=== PATIENT | female | born 1930 | race Caucasian/White ===

== ENCOUNTER → 2017-05-01 | Outpatient (CLI) | payer OTHER ==
[~2017-05-01] MED LIST: COR200 PO; CRESTOR; CRESTOR10 M1 PO; K10 PO; LEVOFLOXACIN500 M1 PO; LOP50 PO; METOPROLOL TART25 M1 PO; NOR10 PO; POTASSIUM CHLO20 ME1 PO; SYN75 PO; SYNTHROID0.075 MG PO; VALSARTAN AND H1 TA3 PO; VALSARTAN/HCTZ; VITAMIN D31000 I2 PO; XARELTO; XARELTO10 M1 PO
== END | disposition home or self-care (01) ==
LOC: RD 09:36
DX: Z00.00 Encounter for general adult medical examination without abnormal findings (principal)

== ENCOUNTER 2019-04-05 12:21 | Inpatient (IN) | payer OTHER ==
[~2019-04-05] VITALS: Ht 162.6 cm; Wt 97.1 kg
[2019-04-05 12:28] VITALS: Ht 162.6 cm; Wt 97.1 kg
--- NOTE | 2019-04-05 12:40 | NUR ---
BROUGHT IN BY AMBULANCE AWAKE ALERT ORIENTED,C/O SOB STARTED 2 DAYS AGO,[facility] PT WAS NOT IN DISTRESS AND MINIMAL WHEEZING ,WAS GIVEN HHN TREATMENT ,FEELS BETTER
[2019-04-05 14:12] LABS: BASOPHIL % 0.9 % (0-2); PLATELET COUNT 224 x10^3mcL (130-400); RED CELL DISTRIBUTION WIDTH 16.3 % (11.5-14.5)
[2019-04-05 14:13] LABS: microscopic required? YES; urine erythrocyte 2+ (NEGATIVE)
--- NOTE | 2019-04-05 14:32 | NUR ---
PT RESTING COMFORTABLY, FAMILY AT BEDSIDE PT ON FULL CM. WILL CONTINUE TO MONITOR
[2019-04-05 14:47] LABS: CALCIUM 9.4 mg/dL (8.5-10.1); CARBON DIOXIDE 27.2 mmol/L (21-32); CHLORIDE SERUM 101 mmol/L (98-107); CREATININE SERUM 1.2 mg/dL (0.6-1.0); GLUCOSE SERUM 114 mg/dL (74-106); POTASSIUM SERUM 4.2 mmol/L (3.5-5.1); SODIUM SERUM 139 mmol/L (136-145)
[2019-04-05 14:52] LABS: ALKALINE PHOSPHATASE 183 U/L (46-116); ALT/SGPT 30 U/L (14-59); AST/SGOT 30 U/L (15-37); BILIRUBIN TOTAL 2.6 mg/dL (0.20-1.00); TOTAL PROTEIN, SERUM 8.1 g/dL (6.4-8.2)
[2019-04-05 14:53] LABS: ALBUMIN 3.2 g/dL (3.4-5.0)
--- NOTE | 2019-04-05 15:19 | NUR ---
PT MEDICATED PER MD ORDERS SEE EMAR. FAMILY AT BEDSIDE PT REMAINS ON FULL CM WILL MONITOR.
[2019-04-05] MEDS ORDERED: CARDIZEM CD180 MG (15:23)
--- NOTE | 2019-04-05 16:20 | NUR ---
PT ASSISTED TO BEDPAN. THIS IS PT SECOND TIME VOIDING. CATHIE CARE DONE, PT IN POSITION OF COMFORT WILL MONITOR
--- NOTE | 2019-04-05 16:35 | NUR ---
PT TO CT AT THIS TIME
--- NOTE | 2019-04-05 16:50 | NUR ---
REPORT GIVEN TO CARLOS BHATTI IN TELE FLOOR. MATTEO BHATTI WILL BE PRIMARY RN IN TELE FLOOR
--- NOTE | 2019-04-05 16:59 | NUR ---
PT TAKEN TO "STAT CT ANGIO" BY [employer] PRESSURE WASHER.
[2019-04-05 17:15] LABS: FREE T4 1.92 ng/dL (0.76-1.46); FREE THYROXINE INDEX 5.2 ug/dL (1.4-4.5); T4(THYROXINE) 13.6 ug/dL (4.7-13.3)
--- NOTE | 2019-04-05 17:19 | NUR ---
PT TO TELE FLOOR VIA [employer] ON PORTABLE CM NO DISTRESS TAKEN BY DEBBY BHATTI AND DESIREE MENCHACA. OLGA BHATTI RESUMING CARE OF PT IN TELE FLOOR
[2019-04-05 17:27] LABS: MAGNESIUM 1.9 mg/dL (1.8-2.4); PHOSPHOROUS 3.1 mg/dL (2.5-4.9)
[2019-04-05 17:52] VITALS: BP 157/79
--- NOTE | 2019-04-05 18:05 | NUR ---
RECEIVED PT FROM ER, PT ADMIT FOR CHF. PT IS A/O X4, VERBAL RESPONSIVE. LUNG SOUND CLEAR BILATERAL, NO COUGH, NO SOB. PT IS ON TELE 3, A.FIB. DENY ANY CHEST PAIN OR DISCOMFORT. BOWEL SOUND PRESENT ALL 4 QUADRANTS, NO DISTENTION, NO TNEDER. PEDAL PULSE PRESENT BOTH FEET, +1 EDEMA BLE. IV AT LEFT AC, NO LEAKING, NO INFILTRAITON.A LL ADLS ASSIST,ALL NEED MET, CALL LIGHT IN REACH, WILL CONTINUE TO MONITOR.
[2019-04-05 18:08] LABS: T3 TOTAL 0.7 ng/mL
--- NOTE | 2019-04-05 19:20 | NUR ---
AWAKE AND ALERT, ORIENTED TO NAME, PLACE, TIME AND SITUATION. SPEECH CLEAR AND APPROPRIATE. BREATHING EVEN AND UNLABORED ON 2LPM OF O2 VIA NC, BUT STATED HAS SHORTNESS OF BREATH WHEN SHE GETS UP TO GO TO RESTROOM, NEEDS ASSISTANCE TO USE RESTROOM. AFIB ON TELE, WITH PACEMAKER, HR 88-90/MIN, NO PACING NOTED AT THIS TIME. DENIES HAVING CHEST PAIN. SALINE LOCK TO LEFT AC.
--- NOTE | 2019-04-05 19:45 | NUR ---
NOTED ORDER TO INTERROGATE PACEMAKER. OBTAIN PACEMAKER DETAILS FROM PATIENT, OFFICE MACHINE SERVICER APPRENTICE IS [employer]. CALLED [employer] ABLE TO SPEAK WITH FATIMAH. SHE STATED SOMEBODY WILL BE CALLING BACK.
--- NOTE | 2019-04-05 19:50 | NUR ---
NOTED LACTIC 3.7. PAGED DR. LOPEZ
--- NOTE | 2019-04-05 20:13 | NUR ---
NOTED NEW ORDER
[2019-04-05 21:17] VITALS: BP 140/67
--- NOTE | 2019-04-05 22:03 | NUR ---
ASSISTED TO AMBULATE TO RESTROOM. VOIDED. ASSISTED BACK TO BED. SALINE LOCK TO LEFT AC FLUSHED WELL. EARLIER EXPLAINED TO PT PURPOSE OF ORDERED ANTIBIOTICS AND POSSIBLE SIDE EFFECT. STARTED ORDERED CLEOCIN IVPB.
[2019-04-05 23:10] VITALS: BP 140/67
--- NOTE | 2019-04-05 23:35 | NUR ---
EYES CLOSED, BREATHING EVEN AND UNLABORED ON 2LPM OF O2 VIA NC. CALL LIGHT WITHIN EASY REACH. BED ALARM ON. HOB KEPT ELEVATED 30 DEG.
--- NOTE | 2019-04-06 00:18 | NUR ---
ASSISTED TO RESTROOM BY BOOM DHALIWAL. VOIDED. STATED HAS NOT BEEN ABLE TO SLEEP. ASKING FOR SLEEPING PILL. PAGED DR. LOPEZ
--- NOTE | 2019-04-06 00:19 | NUR ---
DR. LOPEZ CALLED BACK, INFORMED PT UNABLE TO SLEEP, ASKING FOR SLEEPING PILL
--- NOTE | 2019-04-06 03:47 | NUR ---
EYES CLOSED, BREATHING EVEN AND UNLABORED. CALL LIGHT WITHIN EASY REACH. BED ALARM ON.
[2019-04-06 05:25] VITALS: BP 145/74
--- NOTE | 2019-04-06 06:06 | NUR ---
ASSISTED RESTROOM, VOIDED, ASSISTED BACK TO BED. PROVIDED WITH NEW NON-SKID SOCKS. STATED SLEPT WELL. BREATHING EVEN AND UNLABORED ON 2LPM OF O2 VIA NC. SALINE LOCK TO LEFT AC FLUSHED WELL, STARTED DUE CLEOCIN IVPB. AFIB HR 103/MIN.
--- NOTE | 2019-04-06 07:05 | NUR ---
EYES CLOSED, BREATHING EVEN AND UNLABORED. IN NO ACUTE DISTRESS. ENDORSED TO NURSE SARY
--- NOTE | 2019-04-06 07:15 | NUR ---
AAO X4.DENIES ANY PAIN/DISCOMFORT.LUNG SOUND CLEAR/DIM.ON AFIB ON THE MONITOR.HR=97.IV SALINE LOCKED.BLE WITH TRACE EDEMA.CALL LIGHT WITHIN REACH.INSTRUCTED TO CALL FOR ANY PAIN/DISCOMFORT.WILL CONTINUE TO MONITOR PT.
[2019-04-06 08:22] VITALS: BP 120/66
[2019-04-06 08:25] VITALS: BP 163/74
[2019-04-06 08:30] LABS: BASOPHIL % 0.4 % (0-2); PLATELET COUNT 185 x10^3mcL (130-400)
[2019-04-06 08:38] LABS: RED CELL DISTRIBUTION WIDTH 16.2 % (11.5-14.5)
[2019-04-06 12:30] LABS: ALKALINE PHOSPHATASE 147 U/L (46-116); ALT/SGPT 22 U/L (14-59); AST/SGOT 25 U/L (15-37); BILIRUBIN TOTAL 2.18 mg/dL (0.20-1.00); CALCIUM 8.5 mg/dL (8.5-10.1); CARBON DIOXIDE 32.4 mmol/L (21-32); CHLORIDE SERUM 102 mmol/L (98-107); CREATININE SERUM 1.1 mg/dL (0.6-1.0); GLUCOSE SERUM 76 mg/dL (74-106); MAGNESIUM 1.8 mg/dL (1.8-2.4); PHOSPHOROUS 3.5 mg/dL (2.5-4.9); POTASSIUM SERUM 3.8 mmol/L (3.5-5.1); SODIUM SERUM 139 mmol/L (136-145); TOTAL PROTEIN, SERUM 6.3 g/dL (6.4-8.2)
[2019-04-06 12:32] LABS: ALBUMIN 2.8 g/dL (3.4-5.0)
[2019-04-06 12:41] VITALS: BP 129/73
--- NOTE | 2019-04-06 13:31 | NUR ---
Echocardiogam completed.
--- NOTE | 2019-04-06 14:47 | NUR ---
TOOK PICTURES ON PT'S BUTTOCKS.NOTED CONTACT DEMATITIS RELATED TO INCONTINENCE.CLEANED ARE AND APPLIED Z-GUARD.INSTRUCTED PT TO TURN FREQUENTLY.
--- NOTE | 2019-04-06 15:33 | NUR ---
IV LEAKING.REINSERTED 22 G ON L HAND.
[2019-04-06 16:45] VITALS: BP 125/69
--- NOTE | 2019-04-06 18:51 | NUR ---
NO SIGNIFICANT CHANGE NOTED.WILL ENDORSE TO NEXT SHIFT.
--- NOTE | 2019-04-06 19:38 | NUR ---
RECEIVED PT FROM DAY SHIFT RN. PT AAOX4 DENIES LANE/DIZZINESS. PT BREATHING EVEN AND UNLABORED ON NC 2L/MIN, NO SOB NOTED. TELE #3 PACED, AFIB WITH BBB. HR 90. PT DENIES CHEST PAIN/PRESSURE. IV LH. BLE EDEMA NOTED, PALPABLE PULSES. NO SIGNS OF ACUTE DISTRESS NOTED. CALL BUTTON WITHIN REACH. SAFETY PRECAUTIONS IN PLACE. WILL CONTINUE TO MONITOR.
[2019-04-06 21:05] VITALS: BP 125/73
--- NOTE | 2019-04-07 02:00 | NUR ---
PT RESTING. NO ACUTE DISTRESS NOTED. IV PATENT, INFUSING WELL. CALL BUTTON WITHIN REACH. SAFETY PRECAUTIONS IN PLACE. WILL CONTINUE TO MONITOR.
[2019-04-07 05:47] VITALS: BP 127/78
--- NOTE | 2019-04-07 06:31 | NUR ---
PT SLEPT MOST OF THE NIGHT WITH NO SIGNS OF DISTRESS NOTED. IV PATENT, SL. PT AMBULATORY WITH BRP. PT MEDICATED PER EMAR. NO SIGNS OF ACUTE DISTRESS. CALL BUTTON WITHIN REACH. SAFETY PRECAUTIONS IN PLACE. WILL CONTINUE TO MONITOR AND ENDORSE CARE TO DAY SHIFT RN.
--- NOTE | 2019-04-07 07:35 | NUR ---
RECEIVED HAND OFF REPORT FROM NIGHT NURSE. PATIENT RESTING AT THIS TIME. EYES CLOSED. BREATHING REGULAR AND UNLABORED. APPARENTLY ASLEEP. TELE 3 PRESENT ON CHEST, SHOWING AFIB AT 110. PACEMAKER PRESENT TO UPPER LEFT CHEST. CALL LIGHT ASIA DICKSON, WILL CONTINUE TO MONITOR
--- NOTE | 2019-04-07 07:48 | NUR ---
PT RESTING. NO ACUTE DISTRESS NOTED. CALL BUTTON WITHIN REACH. SAFETY PRECAUTIONS IN PLACE. ENDORSED CARE TO DAY SHIFT RN, ALL QUESTIONS ADDRESSED.
[2019-04-07 09:12] VITALS: BP 101/51
--- NOTE | 2019-04-07 10:02 | NUR ---
DR CAMERON AND DR ALMODOVAR ROUNDED ON PATIENT. CURRETLY ON 2LT NC OQYGEN, ORDER FOR HOME O2 EVALUATION, WILL ATTEMPT TO WEEN OFF OXYGEN. CHANGE TO DILTIAZEM FOR 160 TO 180MG.
--- NOTE | 2019-04-07 10:31 | NUR ---
ADMINSTERED MEDICATIONS PER JUN. PATIENT BLOOD PRESSURE 99/47 HELD BLOOD PRESSURE MEDICATIONS DUE TO PARAMETERES TO HOLD IF SBP<120. WILL UPDATE DR ALMODOVAR
--- NOTE | 2019-04-07 11:30 | NUR ---
HOME O2 EVALUATION COMPLETED FOR PATIENT. PT DOES NOT QUALIFY FOR HOME O2. ROOM AIR SPO2 89% RESTING, 99% AMBULATING. SPO2 99% AMBULATING ON O2 WELL.
--- NOTE | 2019-04-07 12:27 | NUR ---
PATIENT RESTING IN BED AT THIS TIME ON ROOM AIR. NO SOB, O2 SAT 92% HOME O2 EVAL DEEMED PATIENT DOES NOT QUALIFY FOR HOME O2. WILL UPDATE DOCTOR.
--- NOTE | 2019-04-07 13:45 | NUR ---
DR SAHNI ROUNDED ON PATIENT. UPDATED ON PATIENT PLAN OF CARE. PATIETN DAUGHTER IN ROOM. AWAITING THERMODYNAMICS TEACHER CONSULTATION FOR UPDATE ON MEDICATONS AND TREATMENT PLANS BEFORE DISCHARGE
[2019-04-07 14:04] VITALS: BP 97/49
[2019-04-07 16:52] VITALS: BP 122/61
--- NOTE | 2019-04-07 17:56 | NUR ---
ADMINISTERED MEDICATIONS PER MAR. STARTED PATIENT ON NEW MEDICATION, DIGOXIN PER DR NORRIS. EDUCATED PATIENT ABOUT MEDICATION, USES, INDICATIONS AND SIDE EFFECTS, PROVIDED EDUCATION MATERIAL ABOUT MEDICATION. CHECKED APICAL PULSE, 114. WILL CONTINUE TO MONITOR
--- NOTE | 2019-04-07 19:35 | NUR ---
Pt. received from day shift, currently resting in bed awake and alert. Pt. is able to make needs known, able to follow commands, and has no c/o of h/a at this time. Pt. at this time has no c/o SOB, chest pain, pain, s/o discomfort or distress. Pt. is ambulatory w/ assistance to the bathroom, redness noted, incontinent dermatitis noted near her buttocks area, cream was applied by day shift and as per day shift, pt. was educated. Otherwise, pt. stable, pt. safety in check w/ call light placed within reach, pt. educated on when and how to use call light system, bed set at lowest position, will continue to monitor pt.
[2019-04-07 21:05] VITALS: BP 119/85
--- NOTE | 2019-04-08 | NUR ---
Pt. asleep for most of the shift, no c/o of c/p, n,v, h/a, or s/o distress. Pt. easily arousable using verbal stimuli throughout shift, will continue to monitor pt at this time.
--- NOTE | 2019-04-08 05:42 | NUR ---
Pt. asleep for most of the night, easily arousable using verbal stimuli. Pt. had no c/o c/p throughout the night. Pt. did c/o of weird pain in left hip, but blames it on bed. Educated pt. to reposition self in bed every hour or two, and will follow up in the AM with MD. Otherwise, pt. was d/c from IV s/p ab(x) t(x), will continue to monitor pt. until end of shift and endorse to oncoming RN.
[2019-04-08 06:15] VITALS: BP 133/58
[2019-04-08 06:35] LABS: PLATELET COUNT 216 x10^3mcL (130-400)
[2019-04-08 06:48] LABS: CALCIUM 8.8 mg/dL (8.5-10.1); CARBON DIOXIDE 35.2 mmol/L (21-32); CHLORIDE SERUM 97 mmol/L (98-107); CREATININE SERUM 1.6 mg/dL (0.6-1.0); GLUCOSE SERUM 82 mg/dL (74-106); MAGNESIUM 1.8 mg/dL (1.8-2.4); PHOSPHOROUS 4.2 mg/dL (2.5-4.9); POTASSIUM SERUM 3.6 mmol/L (3.5-5.1); SODIUM SERUM 138 mmol/L (136-145)
--- NOTE | 2019-04-08 07:20 | NUR ---
RECEIVED PT SITTING UP IN BED. NO ACUTE DISTRESS. AAOX4. RESP EVEN AND UNLABORED ON RA. PT REPORTS HAVING DRY HEAVES AFTER TAKING MEDICINE EARLIER BUT FEELS BETTER NOW. EMESIS BAG WITH PT. IV TO RFA, NO REDNESS OR SWELLING NOTED. HOB ELEVATED. GEN WEAKNESS. FALL PRECAUTIONS. BED IN LOW POSITION, CALL LIGHT WITHIN REACH. WILL CONTINUE TO MONITOR.
[2019-04-08 08:33] VITALS: BP 139/66
--- NOTE | 2019-04-08 11:31 | NUR ---
PT RESTING IN BED WATCHING TV. NO ACUTE DISTRESS. HOB ELEVATED. AAOX4. RESP EVEN AND UNLABORED ON RA. IV TO RFA, NO REDNESS OR SWELLING NOTED. FALL PRECAUTIONS. CALL LIGHT WITHIN REACH. WILL CONTINUE TO MONITOR.
[2019-04-08 13:13] VITALS: BP 111/56
[2019-04-08] MEDS ORDERED: PEP20 PO (13:42)
[2019-04-08] MEDS ORDERED: LOP50 PO (13:42)
[2019-04-08] MEDS ORDERED: D25 PO (13:43)
[2019-04-08] MEDS ORDERED: XARELTO15 M1 PO (13:43)
[2019-04-08] MEDS ORDERED: KLOR-CON M2020 MEQ PO (13:44)
[2019-04-08] MEDS ORDERED: CARCD180 PO (13:44)
[2019-04-08] MEDS ORDERED: SYN75 PO (13:45)
[2019-04-08] MEDS ORDERED: LEVOFLOXACIN500 M1 PO (13:54)
[2019-04-08] MEDS ORDERED: DIT5 PO (13:56)
--- NOTE | 2019-04-08 14:00 | NUR ---
1. Recommend continuing cardiac (1L FR/24 hrs) diet at this time.
--- NOTE | 2019-04-08 14:00 | NUR ---
Initial Nutrition Assessment: 243T/A OFE DIAZ IA HR Dx: CHF PMHx: HTN, Atrial Fibrillation, s/p pacemaker, Hyperlipidemia, Hypothyroidism PSHx: Cholecystectomy (2002), Cataract Removal (2008-Rt, 2013-Lt), Hernia Repair (1996), Pacemaker insertion- 2012, Hysterectomy-1973, Tonsillectomy/adenoidectomy-1942 Labs: BUN 26H, CREAT 1.6H, ALB 2.8L Meds: Colace, Lopressor, norco, pepcid, synthroid Diet: cardiac (1L FR/24 hrs) PO intake since admission: (04/06) all meals 90% Ht: 162.56 cm (64") Wt: 97 kg (213#) BMI: 36.7 kg/m2 Bed scale: 97 kg IBW: 120# (54 kg) %IBW: 177 UBW: 213# Age: 88/F Food Allergies: NKFA Skin: intact Tito: 20 Edema: none GI: Last BM: 04/05 Per H&P, Pt is a 88 yoF with PMH HTN, Atrial Fibrillation, s/p pacemaker, Hyperlipidemia, Hypothyroidism who came with SOB since 2 days, which started suddenly, is constant, progressive, aggravated by exertion, and alleviated by rest. RD Note (04/08): Patient said that she ate most of her breakfast this morning and has good appetite. Patient denies any N/V/D/C ta this time. Per bed huddles, patient is likely to be D/C today. Problem with: N/V/D/C: none Problems with: Chewing: Swallowing: none Current appetite: good Recent wt change: none %wt change: n/a Vitamin/Supplement use: Vitamin D 3, B6 Special diet at home: Regular Physical activity: sedentary Nutrition education given: Low sodium diet education was provided along with label- reading tips Food-drug interactions: none Education given: n/a Estimated Nutritional Needs Based on adjusted body weight (65 kg) Energy: 3824-9981 kcal/day (30-35 kcal/kg for geriatric maintenance) Protein: 78-91 g/day (1.2-1.4 g/kg for geriatric maintenance) Fluid: 4650-4028 mL/day (1 mL/kcal) Nutrition Diagnosis: 1. Morbid obesity related to increased energy intake as evidenced by BMI 36.7 kg/m2 Intervention 1. Recommend continuing cardiac (1L FR/24 hrs) diet at this time. Monitor/Evaluate Goal: PO intake at least 75% of estimated needs Monitor: PO intake, Labs, GI function F/U in 3-5 days as moderate risk 04/11-7
[2019-04-08 14:12] VITALS: BP 111/56
--- NOTE | 2019-04-08 15:31 | NUR ---
PT DISCHARGED TO HOME WITH HOME HEALTH IN NO ACUTE DISTRESS. AWAKE, ALERT, AND ORIENTED. VSS. TRANSPORTED VIA WHEELCHAIR. NEW RX EDUCATION PROVIDED. DISCHARGE EDUCATION PROVIDED, PT AND DAUGHTER VERBALIZED UNDERSTANDING. INSTRUCTED PT TO FOLLOW UP WITH PCP. IV DC'D WITH CATHETER INTACT. TELE REMOVED. BELONGINGS WITH PT. KAVIN NUR ACCOMPANIED PT TO LOBBY.
== END 2019-04-08 15:32 | disposition home health service (06) | DRG 177 ==
LOC: ED 12:21 → DU 16:10
PROVIDERS: Emergency Medicine; Internal Medicine; ADMIT General Practice
DX: J69.0 Pneumonitis due to inhalation of food and vomit (principal); I50.43 Acute on chronic combined systolic (congestive) and diastolic (congestive) heart failure; E87.2 Acidosis; E44.1 Mild protein-calorie malnutrition; I11.0 Hypertensive heart disease with heart failure; I48.91 Unspecified atrial fibrillation; E80.6 Other disorders of bilirubin metabolism; E78.5 Hyperlipidemia, unspecified; E03.9 Hypothyroidism, unspecified; E66.9 Obesity, unspecified; Z68.38 Body mass index [BMI] 38.0-38.9, adult; Z95.0 Presence of cardiac pacemaker; Z79.01 Long term (current) use of anticoagulants
CPT/HCPCS: 36600; 83880; 84439; 90658; G0378; J1940; J1956; J3490; J7050; Q0092; Q9967